=== PATIENT | female | born 1960 | race Caucasian/White ===

== ENCOUNTER → 2016-05-03 | Outpatient (REF) | payer OTHER ==
[~2016-05-03] MED LIST: AMBI10TA; BUPR150T3 PO; BUSP15TA; BUSP15TA47 PO; COUM2.5T11 PO; EFFE150C; PERC5TAB6 PO; SERT-138 PO; VENL37.5; WELLTAB38 PO; ZOLO50TA; ZOLP12.515 PO
[2016-05-03 14:11] LABS: INR 2.67
== END ==
LOC: M SHH 13:08
PROVIDERS: ATTEND Nurse Practitioner Family
DX: Z51.81 Encounter for therapeutic drug level monitoring (principal); Z79.01 Long term (current) use of anticoagulants

== ENCOUNTER → 2016-05-05 | Outpatient (REF) | payer OTHER ==
[2016-05-05 13:35] LABS: INR 1.98
== END ==
LOC: M SHH 13:04
PROVIDERS: ATTEND Nurse Practitioner Family
DX: Z51.81 Encounter for therapeutic drug level monitoring (principal); Z79.01 Long term (current) use of anticoagulants

== ENCOUNTER → 2016-05-09 | Outpatient (REF) | payer OTHER ==
[2016-05-09 13:49] LABS: INR 1.32
== END ==
LOC: M SHH 13:29
PROVIDERS: ATTEND Nurse Practitioner Family
DX: Z51.81 Encounter for therapeutic drug level monitoring (principal); Z79.01 Long term (current) use of anticoagulants

== ENCOUNTER → 2016-05-12 | Outpatient (REF) | payer OTHER | LOC: M SHH 13:31 | PROVIDERS: ATTEND Nurse Practitioner Family | DX: Z51.81 Encounter for therapeutic drug level monitoring (principal); Z79.01 Long term (current) use of anticoagulants ==

== ENCOUNTER → 2017-02-15 | Outpatient (CLI) | payer OTHER ==
[~2017-02-15] MED LIST changes: -COUM2.5T11 PO; +COUM2.5T17 PO; +PERC5TAB12 PO; -PERC5TAB6 PO
[2017-02-15 17:42] LABS: FREE T4 0.81 NG/DL (0.76-1.46)
== END ==
LOC: M LAB 16:23
PROVIDERS: ATTEND Internal Medicine Gastroenterology
DX: K58.0 Irritable bowel syndrome with diarrhea (principal); R93.3 Abnormal findings on diagnostic imaging of other parts of digestive tract

== ENCOUNTER 2017-04-13 07:03 | Day surgery (SDC) | payer OTHER ==
[~2017-04-13] VITALS: Ht 167.6 cm; Wt 63.5 kg
[~2017-04-13 07:03] MED LIST changes: +AMBI12.52 PO
[2017-04-13] MEDS ORDERED: NS 1,000 ML IV ONE (07:15)
[2017-04-13] MEDS ORDERED: PROPOFOL 200 MG/20 ML VIAL As Ordered ONE (07:45)
[2017-04-13] MEDS ORDERED: LIDOCAINE 2% INJ 100 MG/5 ML SDV (FOR ANES.) As Ordered ONE (07:46)
--- NOTE | 2017-04-13 08:24 | ROOR ---
Patient Name: Nichol Henry Procedure Date: 04/13/2017 7:57 AM Date of : 1960 Age: 56 Room: [id number] Gender: Female Note Status: Finalized Procedure: Colonoscopy Indications: Generalized abdominal pain, Follow-up of irritable bowel syndrome Providers: Rogerio DALEY MD Referring MD: RAZIA PULIDO Requesting Provider: Medicines: Monitored Anesthesia Care Complications: No immediate complications. Procedure: Pre-Anesthesia Assessment: - The heart rate, respiratory rate, oxygen saturations, blood pressure, adequacy of pulmonary ventilation, and response to care were monitored throughout the procedure. The Colonoscope was introduced through the anus and advanced to 5 cm into the ileum. The colonoscopy was performed without difficulty. The patient tolerated the procedure well. The quality of the bowel preparation was good. Findings: The perianal and digital rectal examinations were normal. The colon (entire examined portion) was moderately redundant. Mild diverticulosis and small internal hemorrhoids. The entire examined colon appeared normal on direct and retroflexion views. Biopsies for histology were taken with a cold forceps from the entire colon for evaluation of microscopic colitis. Fluid aspiration for Clostridium difficile was performed in the sigmoid colon. Impression: - Redundant colon. - Mild diverticulosis. - The entire examined colon is normal on direct and retroflexion views. - No specimens collected. Recommendation: - Telephone endoscopist for pathology results in 2 weeks. - Continue present medications. - Use fiber, for example Citrucel, Fibercon, Konsyl or Metamucil. - for continued severe symptoms of irritable bowel, consideration will be given to amitiptyline 10-25 mg at bedtime. Rogerio Daley MD Rogerio DALEY MD 04/13/2017 8:23:50 AM This report has been signed electronically. Number of Addenda: 0 Note Initiated On: 04/13/2017 7:57 AM Estimated Blood Loss: Estimated blood loss: none. Estimated blood loss: none.
[2017-04-13 08:40] VITALS: BP 127/62
== END 2017-04-13 08:49 | disposition home or self-care (01) ==
LOC: M OPP 07:03
PROVIDERS: ATTEND Internal Medicine Gastroenterology
DX: R10.84 Generalized abdominal pain (principal); K58.9 Irritable bowel syndrome, unspecified; Q43.8 Other specified congenital malformations of intestine; K57.30 Diverticulosis of large intestine without perforation or abscess without bleeding; K64.8 Other hemorrhoids; K59.00 Constipation, unspecified; R19.7 Diarrhea, unspecified; M19.90 Unspecified osteoarthritis, unspecified site; M25.60 Stiffness of unspecified joint, not elsewhere classified; F41.9 Anxiety disorder, unspecified; F32.9 Major depressive disorder, single episode, unspecified; Z78.0 Asymptomatic menopausal state; R06.02 Shortness of breath; Z96.641 Presence of right artificial hip joint; Z79.899 Other long term (current) drug therapy

== ENCOUNTER → 2023-11-10 | Outpatient (CLI) | payer MEDICARE, OTHER ==
[~2023-11-10] MED LIST changes: +BUPR150T12 PO; -BUPR150T3 PO; -ZOLP12.515 PO; +ZOLP12.535 PO
== END ==
LOC: M WHC 13:48
PROVIDERS: ATTEND Internal Medicine
DX: Z12.31 Encounter for screening mammogram for malignant neoplasm of breast (principal); R92.323 Mammographic fibroglandular density, bilateral breasts

== ENCOUNTER → 2024-01-03 | Outpatient (REF) | payer OTHER | LOC: M LAB REF 16:14 | PROVIDERS: ATTEND Physician Assistant | DX: R30.0 Dysuria (principal) ==

== ENCOUNTER 2024-05-27 14:33 | Emergency (ER) | payer OTHER ==
[~2024-05-27] VITALS: Ht 167.6 cm; Wt 61.4 kg
[2024-05-27] MEDS ORDERED: NAPR1TAB83 PO (19:51)
[2024-05-27 20:22] VITALS: BP 136/63; TEMP 99; O2SAT 97
== END 2024-05-27 20:25 | disposition home or self-care (01) ==
LOC: EDBD 14:33 → M ED 14:33
DX: S83.92XA Sprain of unspecified site of left knee, initial encounter (principal); M17.12 Unilateral primary osteoarthritis, left knee; R26.81 Unsteadiness on feet; W00.0XXA Fall on same level due to ice and snow, initial encounter; Y92.009 Unspecified place in unspecified non-institutional (private) residence as the place of occurrence of the external cause; Y93.9 Activity, unspecified; Y99.9 Unspecified external cause status; M81.0 Age-related osteoporosis without current pathological fracture; F41.9 Anxiety disorder, unspecified; F32.9 Major depressive disorder, single episode, unspecified; Z96.641 Presence of right artificial hip joint; Z79.899 Other long term (current) drug therapy